=== PATIENT | female | born 1950 | race African-American/Black ===

== ENCOUNTER 2017-03-17 12:13 | Emergency (ER) | payer MEDICARE, OTHER ==
[~2017-03-17] VITALS: Ht 165.1 cm; Wt 50.0 kg
[2017-03-17 12:23] VITALS: BP 104/59; PULSE 70; RESP 17; TEMP 97.9; O2SAT 99
[2017-03-17] MEDS ORDERED: SODIUM CHLORIDE 0.9% FLUSH 10 ML FLUSH IVF PRN (12:45)
[2017-03-17 12:59] VITALS: BP 127/57; PULSE 69; RESP 16; O2SAT 100
[2017-03-17] MEDS ORDERED: CARV25TA PO (13:03)
[2017-03-17] MEDS ORDERED: LISI40TA PO (13:03)
[2017-03-17] MEDS ORDERED: METF500T PO (13:03)
[2017-03-17] MEDS ORDERED: POTA10TA2 PO (13:03)
--- NOTE | 2017-03-17 13:08 | RADRPT ---
EXAM DATE/TIME: 03/17/2017 12:52 [place] COMPARISON: No previous studies available for comparison. INDICATIONS : Nausea, lightheaded and general weakness. MEDICAL HISTORY : Carcinoma, left breast. Cardiomegaly. Asthma. SURGICAL HISTORY : Left breast removal and reconstruction. ENCOUNTER: Initial ACUITY: 1 day PAIN SCORE: 0/10 LOCATION: Bilateral chest FINDINGS: A single view of the chest demonstrates the lungs to be symmetrically aerated without evidence of mas s, infiltrate or effusion. The cardiomediastinal contours are unremarkable. Osseous structures are intact. Clips left axilla. CONCLUSION: No acute disease. John Montoya MD on March 17, 2017 at 13:06 Board Certified Radiologist. This report was verified electronically.
[2017-03-17 13:18] VITALS: BP_SYST 126; BP_SYST 145; BP_SYST 151; BP_DIAS 59; BP_DIAS 68; BP_DIAS 71; RESP 16
[2017-03-17] MEDS ORDERED: SODIUM CHLORID 0.9% 500 ML INJ 500 ML IV ONE (13:30)
[2017-03-17 13:37] LABS: AUTOMATED NEUTROPHIL # 3.9 TH/MM3 (1.8-7.7); BASOPHIL % 0.6 % (0.0-2.0); EOSINOPHIL # 0.2 TH/MM3 (0-0.4); EOSINOPHIL % 2.9 % (0.0-4.0); HEMATOCRIT 31.5 % (35.0-46.0); HEMO FLAGS DIFF FINAL; LYMPH % 19.9 % (9.0-44.0); LYMPHOCYTE # 1.2 TH/MM3 (1.0-4.8); MEAN CELL VOLUME 88.1 FL (80.0-100.0); MEAN CORPUSCULAR HEMOGLOBIN 28.8 PG (27.0-34.0); MEAN CORPUSCULAR HGB CONC 32.7 % (32.0-36.0); MONO % 11.5 % (0.0-8.0); NEUT % 65.1 % (16.0-70.0); PLATELET COUNT 350 TH/MM3 (150-450); RED BLOOD COUNT 3.58 MIL/MM3 (4.00-5.30); RED CELL DISTRIBUTION WIDTH 15.2 % (11.6-17.2); WHITE BLOOD COUNT 6.1 TH/MM3 (4.0-11.0)
[2017-03-17 13:42] LABS: APTT (PATIENT) 33.4 SEC (24.3-30.1); PROTHROMBIN TIME - PATIENT 10.7 SEC (9.8-11.6)
[2017-03-17 13:54] LABS: ALT (GPT) 11 U/L (10-53); ANION GAP 5 MEQ/L (5-15); AST (GOT) 13 U/L (15-37); BICARBONATE 31.8 MEQ/L (21.0-32.0); BLOOD UREA NITROGEN 18 MG/DL (7-18); CHLORIDE 104 MEQ/L (98-107); GLOMERULAR FILTRATION RATE 106 ML/MIN (>89); POTASSIUM 4.1 MEQ/L (3.5-5.1); SODIUM (NA) 141 MEQ/L (136-145)
[2017-03-17 13:58] LABS: ALKALINE PHOSPHATASE 56 U/L (45-117); TOTAL BILIRUBIN ADULT 0.2 MG/DL (0.2-1.0)
[2017-03-17] MEDS ORDERED: MECLIZINE HCL 25 MG TAB PO ONE (14:00)
[2017-03-17 14:43] LABS: BACTERIA, URINE RARE /hpf; BLOOD, URINE NEG (NEG); COMMENT (UR) CULT NOT INDICATED; CULTURE IF INDICATED CULT NOT INDICATED; GLUCOSE,URINE NEG (NEG); KETONE, URINE NEG (NEG); MUCUS URINE FEW /lpf (OCC); NITRITE,URINE NEG (NEG); PH, URINE 5.5 (5.0-8.5); SQUAMOUS EPITHELIAL CELL URINE 1 /hpf (0-5); URINE COLOR YELLOW (YELLW/STRAW)
--- NOTE | 2017-03-17 14:46 | PD ---
HPI Chief Complaint: General Weakness Time Seen by Provider: 12:29 Travel History International Travel<30 days: No Contact w/Intl Traveler<30days: No History of Present Illness HPI Patient is a 67 year old female who comes in complaining of dizziness. She is here on a trip from [place] and she was at the beach when she felt lightheaded. She says she thought her sugar might have been low, but was told by fire that it was not. She denies passing out. She denies any chest pain or SOB. She denies nausea or vomiting. PFSH Past Medical History Asthma: Yes Cardiovascular Problems: Yes (ENLARGED HEART) Diabetes: Yes Patient Takes Glucophage: Yes Glaucoma: Yes Thyroid Disease: Yes Influenza Vaccination: Yes ?: Not Past Surgical History Other Surgery: Yes (LEFT BREAST REMOVED) Social History Alcohol Use: No Tobacco Use: No Substance Use: No Allergies-Medications (Allergen,Severity, Reaction): Coded Allergies: sitagliptin (Verified Allergy, Intermediate, HIVES / RASH, 03/17/17) Sulfa (Sulfonamide Antibiotics) (Verified Allergy, Unknown, 03/17/17) Reported Meds & Prescriptions Reported Meds & Active Scripts Active Reported Potassium Chloride ER (Potassium Chloride) 10 Meq Tab 10 Meq PO DAILY Carvedilol 25 Mg Tab 25 Mg PO BID Lisinopril 40 Mg Tab 40 Mg PO DAILY Metformin (Metformin HCl) 500 Mg Tab 500 Mg PO DAILY With a meal Review of Systems Except as stated in HPI: all other systems reviewed are Neg General / Constitutional: No: Fever, Chills Eyes: No: Blurred Vision HENT: Positive: Lightheadedness, No: Headaches Cardiovascular: No: Chest Pain or Discomfort Respiratory: No: Shortness of Breath Gastrointestinal: No: Nausea, Vomiting Genitourinary: No: Dysuria Musculoskeletal: No: Myalgias, Edema, Pain Skin: No Rash, No Change in Pigmentation Neurologic: Positive: Dizziness, No: Weakness, Syncope Physical Exam Narrative GENERAL: Awake and alert, in no acute distress. SKIN: Focused skin assessment warm/dry. HEAD: Atraumatic. Normocephalic. EYES: Pupils equal and round. No scleral icterus. EOMI. ENT: Mucous membranes pink and moist. NECK: Trachea midline. No JVD. CARDIOVASCULAR: Regular rate and rhythm. No murmur appreciated. RESPIRATORY: No accessory muscle use. Clear to auscultation. Breath sounds equal bilaterally. GASTROINTESTINAL: Abdomen soft, non-tender, nondistended. MUSCULOSKELETAL: No obvious deformities. No clubbing. No cyanosis. No edema. NEUROLOGICAL: Awake and alert. No obvious cranial nerve deficits. Motor grossly within normal limits. Normal speech. PSYCHIATRIC: Appropriate mood and affect; insight and judgment normal. Data Data Last Documented VS Vital Signs Date Time Temp Pulse Resp B/P Pulse Ox O2 Delivery O2 Flow Rate FiO2 03/17/17 13:18 75 16 126/59 70 16 145/68 73 16 151/71 03/17/17 12:59 100 Room Air 03/17/17 12:23 97.9 Orders Electrocardiogram (03/17/17 12:40) Complete Blood Count With Diff (03/17/17 12:40) Comprehensive Metabolic Panel (03/17/17 12:40) B-Type Natriuretic Peptide (03/17/17 12:40) Troponin I (03/17/17 12:40) Act Partial Throm Time (Ptt) (03/17/17 12:40) Prothrombin Time / Inr (Pt) (03/17/17 12:40) Urinalysis - C+S If Indicated (03/17/17 12:40) Ua Includes Microscopic (03/17/17 12:40) Chest, Single Ap (03/17/17 12:40) Ecg Monitoring (03/17/17 12:40) Iv Access Insert/Monitor (03/17/17 12:40) Oximetry (03/17/17 12:40) Sodium Chloride 0.9% Flush (Ns Flush) (03/17/17 12:45) Orthostatic Vital Signs (03/17/17 12:40) Sodium Chlorid 0.9% 500 Ml Inj (Ns 500 M (03/17/17 13:30) Meclizine (Antivert) (03/17/17 14:00) Labs Laboratory Tests Test 03/17/17 03/17/17 13:10 14:30 White Blood Count 6.1 TH/MM3 Red Blood Count 3.58 MIL/MM3 Hemoglobin 10.3 GM/DL Hematocrit 31.5 % Mean Corpuscular Volume 88.1 FL Mean Corpuscular Hemoglobin 28.8 PG Mean Corpuscular Hemoglobin 32.7 % Concent Red Cell Distribution Width 15.2 % Platelet Count 350 TH/MM3 Mean Platelet Volume 7.1 FL Neutrophils (%) (Auto) 65.1 % Lymphocytes (%) (Auto) 19.9 % Monocytes (%) (Auto) 11.5 % Eosinophils (%) (Auto) 2.9 % Basophils (%) (Auto) 0.6 % Neutrophils # (Auto) 3.9 TH/MM3 Lymphocytes # (Auto) 1.2 TH/MM3 Monocytes # (Auto) 0.7 TH/MM3 Eosinophils # (Auto) 0.2 TH/MM3 Basophils # (Auto) 0.0 TH/MM3 CBC Comment DIFF FINAL Differential Comment Prothrombin Time 10.7 SEC Prothromb Time International 1.0 RATIO Ratio Activated Partial 33.4 SEC Thromboplast Time Sodium Level 141 MEQ/L Potassium Level 4.1 MEQ/L Chloride Level 104 MEQ/L Carbon Dioxide Level 31.8 MEQ/L Anion Gap 5 MEQ/L Blood Urea Nitrogen 18 MG/DL Creatinine 0.67 MG/DL Estimat Glomerular Filtration 106 ML/MIN Rate Random Glucose 117 MG/DL Calcium Level 9.1 MG/DL Total Bilirubin 0.2 MG/DL Aspartate Amino Transf 13 U/L (AST/SGOT) Alanine Aminotransferase 11 U/L (ALT/SGPT) Alkaline Phosphatase 56 U/L Troponin I LESS THAN 0.02 NG/ML B-Type Natriuretic Peptide 203 PG/ML Total Protein 6.7 GM/DL Albumin 2.6 GM/DL Urine Color YELLOW Urine Turbidity CLEAR Urine pH 5.5 Urine Specific [place] 1.010 Urine Protein NEG mg/dL Urine Glucose (UA) NEG mg/dL Urine Ketones NEG mg/dL Urine Occult Blood NEG Urine Nitrite NEG Urine Bilirubin NEG Urine Urobilinogen LESS THAN 2.0 MG/DL Urine Leukocyte Esterase TRACE Urine RBC LESS THAN 1 /hpf Urine WBC LESS THAN 1 /hpf Urine Squamous Epithelial 1 /hpf Cells Urine Bacteria RARE /hpf Urine Mucus FEW /lpf Microscopic Urinalysis Comment CULT NOT INDICATED MDM Medical Decision Making Medical Screen Exam Complete: Yes Emergency Medical Condition: Yes Interpretation(s) ECG shows NSR at 63, no ST elevation or depression, normal intervals. Differential Diagnosis Dehydration vs electrolyte abnormalities vs ACS (unlikely) vs UTI Narrative Course Patient is a 67-year-old female who comes in complaining of dizziness. Exam shows no abnormalities, no neurologic abnormalities. IV established, labs sent. Labs show no acute abnormalities. Orthostatic vital signs performed show no evidence of orthostasis. Patient given IV fluids and a dose of meclizine. Chest x-ray performed shows no acute abnormalities. Patient reports feeling much better after fluids and meclizine. She'll be discharged home. She is advised to drink more water while she is here. Advised follow-up with her doctor. Advised to return to the ED as needed for any worsening symptoms. Diagnosis Primary Impression: Dizziness Patient Instructions: Dizziness (ED), General Instructions Additional Instructions: Drink plenty of water, especially when you're in the sun. Follow-up with your doctor when you return home. Return to the emergency department as needed for any worsening symptoms. Disposition: DISCHARGE HOME Condition: Stable Marti Krishna MD Mar 17, 2017 14:46
--- NOTE | 2017-03-18 16:05 | EKG ---
Date Performed: 03/17/2017 Time Performed: 13:39:10 PTAGE: 67 years EKG: Sinus rhythm NORMAL ECG NO PREVIOUS TRACING DOCTOR: Erasmo Headley Interpretating Date/Time 03/18/2017 16:03:04
== END 2017-03-17 15:21 | disposition home or self-care (01) ==
LOC: NEPD 12:13
DX: R42 Dizziness and giddiness (principal); E11.9 Type 2 diabetes mellitus without complications; E07.9 Disorder of thyroid, unspecified; Z79.84 Long term (current) use of oral hypoglycemic drugs; Z87.09 Personal history of other diseases of the respiratory system; Z86.79 Personal history of other diseases of the circulatory system; Z86.69 Personal history of other diseases of the nervous system and sense organs
CPT/HCPCS: 71010; 80053; 81001; 83880; 84484; 85025; 85610; 85730; 93005; 96360; 99285; J7040